=== PATIENT | male | born 1985 | race Caucasian/White ===

== ENCOUNTER 2022-04-15 15:44 | Emergency (ER) | payer BC, SELFPAY ==
[2022-04-15 15:53] VITALS: BP 121/83; PULSE 84; RESP 18; TEMP 36.9; O2SAT 98
--- NOTE | 2022-04-15 15:58 | ED.SKABFB ---
HPI - Skin/Abscess/Foreign Bdy General Chief complaint: Skin/Abscess/Foreign Body Stated complaint: ring worm on right side of head Time Seen by Provider: 04/15/22 15:58 Source: patient Mode of arrival: ambulatory Limitations: no limitations History of Present Illness HPI narrative: 36 y/o male presented for c/o possible ringworm. States he got his hair cut today, and noticed red ring to right scalp above ear. Denies pain, drainage, or itching. Has not applied anything to the site. Denies anyone else in the home with similar lesions. Denies change to soap detergent etc or any other exposures. Related Data Allergies Allergy/AdvReac Type Severity Reaction Status Date / Time No Known Allergies Allergy Verified 04/15/22 16:01 Review of Systems Review of Systems: CONSTITUTIONAL: Denies body aches, fever, chills, or sweats. EYES: Denies visual changes, redness, or discharge. ENT: Denies rhinorrhea, congestion CARDIOVASCULAR: Denies chest pain, palpitations, or edema. RESPIRATORY: Denies cough or dyspnea. SKIN: reports red ring to scalp MUSCULOSKELETAL: Denies back pain, joint pain, or myalgia. NEUROLOGIC: Denies headache, numbness, tingling, or weakness. PMFSH Comments At time of signature, I have reviewed and agree with nursing past medical, surgical, social and family history unless otherwise noted. Please see nursing chart for further information. There is no relevant family history pertinent to the presenting complaint Exam Narrative: GENERAL: Well-appearing HEAD: Normocephalic, atraumatic. EYES: conjunctivae clear, and EOMI. ENT: Mucous membranes moist. Oropharynx without edema, erythema or lesions. HEART: Regular rate and rhythm. SKIN: Warm, dry. Right scalp superior to right ear with scaly red ring lesion with skin colored center c/w tinea capitis, no tenderness or drainage to the site, no fluctuance or surrounding induration; no additional lesions noted NEURO: Alert and oriented x3. Course Course Emergency Course: Patient is aware of diagnosis, understands and agrees to treatment plan. Anticipatory guidance given. Patient agrees to follow-up as directed and is aware of reasons to seek care at the emergency department. Portions of this record may have been created with voice recognition software Level of Care: Express Care Visit Vital Signs Vital signs: Vital Signs Temperature 98.5 F 04/15/22 15:53 Pulse Rate 84 04/15/22 15:53 Respiratory Rate 18 04/15/22 15:53 Blood Pressure 121/83 04/15/22 15:53 Pulse Oximetry 98 04/15/22 15:53 Oxygen Delivery Room Air 04/15/22 15:53 Temperature 98.5 F 04/15/22 15:53 Pulse Rate 84 04/15/22 15:53 Respiratory Rate 18 04/15/22 15:53 Blood Pressure 121/83 04/15/22 15:53 Pulse Oximetry 98 04/15/22 15:53 Oxygen Delivery Room Air 04/15/22 15:53 Reviewed MDM - Skin/Abscess/Foreign Bdy MDM Narrative Medical decision making narrative: Advised supportive measures and Instructed patient to go to nearest ER immediately for any worsening symptoms including but not limited to: fever, spreading rash, pain, sore throat, headache, dizziness, chest pain, trouble breathing, or any symptoms concerning to the patient. Pt is appropriate for outpt treatment and f/u. Differential Diagnosis Differential diagnosis: Likely abscess of skin or subcutaneous tissue, viral exanthem, dermatophytosis, urticaria, herpes zoster, cellulitis, eczema, impetigo and contact dermatitis Discharge Plan Discharge Clinical Impression: Tinea capitis Patient Disposition: Home, Self-Care Condition: Stable Instructions: Tinea Capitis (ED) Additional Instructions: Take the medication as directed Observe other members of the household, including pets, for similar signs All household members can use an antifungal shampoo (containing ketoconazole) for two to four weeks? Bedding and towels used by the infected individual should be washed. Furniture th
== END 2022-04-15 16:16 | disposition home or self-care (01) ==
PROVIDERS: Emergency Provider Nurse Practitioner Family; PCP Student in an Organized Health Care Education/Training Program
DX: B35.0 Tinea barbae and tinea capitis (principal)
CPT/HCPCS: 99213; G0463